=== PATIENT | female | born 1970 | race Caucasian/White ===

== ENCOUNTER 2017-09-24 16:47 | Inpatient (IN) | payer OTHER ==
[~2017-09-24] VITALS: Ht 152.4 cm; Wt 89.2 kg
[2017-09-24 17:21] LABS: EOSINOPHIL (%) 0.7 % (0-5); EOSINOPHIL COUNT 0.1 K/uL (0-0.3); HEMATOCRIT 32.9 % (36.0-46.0); IMMATURE GRANULOCYTE (%) 0.4 % (0.0-0.7); INSTRUMENT ABS NEUTROPHIL CT 5.9 K/uL; LYMPHOCYTE COUNT 1.7 K/uL (1.0-2.8); MCH 31.9 PG (29.0-34.0); MCHC 35.3 G/DL (30.0-36.0); MCV 90.4 FL (83-99); MEAN PLAT.VOLUME 9.2 uM^3 (9.5-12.4); MONOCYTE (%) 6.7 % (3-12); MONOCYTE COUNT 0.6 K/uL (0-0.8); NEUTROPHIL COUNT 5.9 K/uL (1.8-6.4); PLATELET COUNT 342 K/uL (156-360); RBC DIS.WIDTH-CV 13.2 % (11.8-14.6); RBC DIS.WIDTH-SD 43.9 % (39-53); RED BLOOD COUNT 3.64 M/uL (3.80-5.20); WHITE BLOOD COUNT 8.3 K/uL (4.1-10.2)
[2017-09-24 17:31] LABS: AMYLASE 57 IU/L (1-118); CHLORIDE 92 mEq/L (99-109); SODIUM 121 mEq/L (136-147)
[2017-09-24 17:33] LABS: GLUCOSE 104 mg/dL (70-99)
[2017-09-24 17:34] LABS: ANION GAP 8 MEQ/L (2-14)
[2017-09-24 17:36] LABS: SERUM ETHYL ALCOHOL < 10 mg/dL
[2017-09-24 17:37] LABS: GFR ESTIMATE (CALCULATED) > 59 mL/min/
[2017-09-24 17:38] LABS: UREA NITROGEN (BUN) 5 mg/dL (9-23)
[2017-09-24 17:40] LABS: LIPASE 22 U/L (1.0-51.0)
[2017-09-24 17:48] LABS: QUANTITATIVE HCG < 4.0 MIU/ML
[2017-09-24 19:09] LABS: ADD MIUA? YES; BILIRUBIN NEGATIVE; BLOOD LARGE; GLUCOSE (STRIP) NEGATIVE; KETONES NEGATIVE; LEUKOCYTES NEGATIVE; NITRITE NEGATIVE; PROTEIN (STRIP) NEGATIVE; SPECIFIC GRAVITY 1.015 (1.000-1.030); UROBILINOGEN 0.2 MG/DL (0.2-1.0)
[2017-09-24 19:12] LABS: COLOR LT.RED ((YELLOW))
[2017-09-24 19:15] LABS: BACTERIA RARE /HPF; EPITHELIAL CELLS RARE /HPF; MUCUS NONE SEEN /LPF; RED BLOOD CELLS TNTC /HPF (0-5); UCUL ADDED? YES; WHITE BLOOD CELLS 0-5 /HPF (0-5)
[2017-09-24 19:23] LABS: AMPHETAMINE NEGATIVE (500 ng/mL); BARBITURATES NEGATIVE (200 ng/mL); BENZODIAZEPINES NEGATIVE (150 ng/mL); COCAINE NEGATIVE (150 ng/mL); INTERNAL CONTROLS VALID? YES; METHADONE NEGATIVE (200 ng/mL); METHAMPHETAMINE NEGATIVE (500 ng/mL); OPIATES (MORPHINE) NEGATIVE (100 ng/mL); OXYCODONE NEGATIVE (100 ng/mL); PHENCYCLIDINE NEGATIVE (25 ng/mL); PROPOXYPHENE NEGATIVE (300 ng/mL); THC CANNABINOIDS NEGATIVE (50 ng/mL); TRICYCLIC ANTIDEPRESSANTS NEGATIVE (300 ng/mL)
[2017-09-24] MEDS ORDERED: TRILEPTAL600 MG PO (20:16)
[2017-09-24] MEDS ORDERED: TRILEPTAL150 MG PO (20:16)
[2017-09-24] MEDS ORDERED: LISINOPRIL20 MG PO (20:17)
[2017-09-24] MEDS ORDERED: VENTOLIN HFA18 GM IH (20:17)
[2017-09-24] MEDS ORDERED: AMLODIPINE BESY10 MG PO (20:17)
[2017-09-24] MEDS ORDERED: TESSALON PERLE100 MG PO (20:18)
[2017-09-24] MEDS ORDERED: GUAIFENESIN AC473 ML PO (20:18)
[2017-09-24] MEDS ORDERED: ZANTAC150 MG PO (20:19)
[2017-09-24 22:54] LABS: TROP-I INTERPRETATION NEGATIVE; TROPONIN-I < 0.01 ng/mL (0.0-0.30)
[2017-09-24 23:09] VITALS: BP 122/68
[2017-09-25 04:00] VITALS: BP 125/68
[2017-09-25 07:25] LABS: HEMATOCRIT 30.5 % (36.0-46.0); MCH 31.3 PG (29.0-34.0); MCHC 34.1 G/DL (30.0-36.0); MCV 91.9 FL (83-99); MEAN PLAT.VOLUME 8.9 uM^3 (9.5-12.4); PLATELET COUNT 344 K/uL (156-360); RBC DIS.WIDTH-CV 13.5 % (11.8-14.6); RBC DIS.WIDTH-SD 46.1 % (39-53); RED BLOOD COUNT 3.32 M/uL (3.80-5.20); WHITE BLOOD COUNT 7.2 K/uL (4.1-10.2)
[2017-09-25 07:49] LABS: ANION GAP 8 MEQ/L (2-14); CHLORIDE 98 MEQ/L (99-109); GFR ESTIMATE (CALCULATED) > 59 mL/min/; GLUCOSE 88 mg/dL (70-99); POTASSIUM 4.5 MEQ/L (3.7-5.4); SAMPLE HEMOLYSIS CHECK 0; SAMPLE ICTERIC CHECK 0; SAMPLE LIPEMIA CHECK 0; SODIUM 127 MEQ/L (136-147); UREA NITROGEN (BUN) 6 mg/dL (9-23)
[2017-09-25 07:56] LABS: TROP-I INTERPRETATION NEGATIVE; TROPONIN-I < 0.01 ng/mL (0.0-0.30)
[2017-09-25 08:03] VITALS: BP 129/74
[2017-09-25 12:14] VITALS: BP 131/73
[2017-09-25 15:49] VITALS: BP 155/82
[2017-09-25 19:28] VITALS: BP 112/66
[2017-09-25 23:24] VITALS: BP 155/76
[2017-09-26 03:23] VITALS: BP 146/78
[2017-09-26 07:40] LABS: ANION GAP 7 MEQ/L (2-14); CHLORIDE 96 MEQ/L (99-109); GFR ESTIMATE (CALCULATED) > 59 mL/min/; GLUCOSE 80 mg/dL (70-99); POTASSIUM 4.4 MEQ/L (3.7-5.4); SAMPLE HEMOLYSIS CHECK 0; SAMPLE ICTERIC CHECK 0; SAMPLE LIPEMIA CHECK 0; SODIUM 128 MEQ/L (136-147); UREA NITROGEN (BUN) 7 mg/dL (9-23)
[2017-09-26 08:28] VITALS: BP 137/84
[2017-09-26 11:45] VITALS: BP 137/65
[2017-09-26] MEDS ORDERED: LEVETIRACETAM500 MG PO (14:39)
[2017-09-26] MEDS ORDERED: ULTRAM50 MG PO (14:40)
== END 2017-09-26 15:30 | disposition home or self-care (01) | DRG 312 ==
LOC: TRA 16:47 → 3EAST 20:51 → EDOF 20:51 → ENRESERV 20:53 → 3EAST 22:52
PROVIDERS: Family Medicine; Hospitalist; Surgery
DX: R55 Syncope and collapse (principal); E87.0 Hyperosmolality and hypernatremia; E87.1 Hypo-osmolality and hyponatremia; T42.1X5A Adverse effect of iminostilbenes, initial encounter; S30.1XXA Contusion of abdominal wall, initial encounter; S20.211A Contusion of right front wall of thorax, initial encounter; V57.5XXA Driver of pick-up truck or van injured in collision with fixed or stationary object in traffic accident, initial encounter; Y92.411 Interstate highway as the place of occurrence of the external cause; F41.1 Generalized anxiety disorder; F43.0 Acute stress reaction; R19.7 Diarrhea, unspecified; G40.909 Epilepsy, unspecified, not intractable, without status epilepticus; R31.9 Hematuria, unspecified; E66.9 Obesity, unspecified; Z68.38 Body mass index [BMI] 38.0-38.9, adult; I10 Essential (primary) hypertension; N39.3 Stress incontinence (female) (male); K57.90 Diverticulosis of intestine, part unspecified, without perforation or abscess without bleeding; M17.11 Unilateral primary osteoarthritis, right knee; M50.30 Other cervical disc degeneration, unspecified cervical region; M48.02 Spinal stenosis, cervical region; R91.1 Solitary pulmonary nodule; F17.200 Nicotine dependence, unspecified, uncomplicated; Z85.528 Personal history of other malignant neoplasm of kidney; Z90.5 Acquired absence of kidney
CPT/HCPCS: 70450; 71010; 71260; 72125; 73560; 74177; 80048; 81003; 82150; 83690; 84484; 84702; 85025; 85027; 86850; 86900; 86901; 87086; 87493; 93005; 93306; 95819; 99281; 99285; G0480; J1644; J7030